=== PATIENT | male | born 1995 | race Caucasian/White ===

== ENCOUNTER 2017-09-10 14:02 | Inpatient (IN) | payer BC, OTHER ==
[~2017-09-10] VITALS: Ht 182.9 cm; Wt 75.5 kg
[2017-09-10] VITALS (8 sets, daily range): BP systolic 113–156; BP diastolic 58–82; PULSE 77–102; RESP 20–30; TEMP 98.3–98.7; O2SAT 98–100
[~2017-09-10 14:02] MED LIST: BACL10TA PO; DICL75 PO
[2017-09-10] MEDS ORDERED: IOHEXOL 350 MG/ML 10 ML VIAL (for RAD DIAG) IVCONTRAST ONE (14:03)
[2017-09-10] MEDS ORDERED: SODIUM CHLOR 0.9% 1000 ML INJ 1,000 ML IV SCH ×2 (14:16→21:36)
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
[2017-09-10] MEDS ORDERED: ALPR.25 PO (14:27)
[2017-09-10] MEDS ORDERED: MORPHINE SULFATE 4 MG/ML INJ IV PUSH ONE ×3 (14:30→18:00)
[2017-09-10] MEDS ORDERED: SODIUM CHLORIDE 0.9% FLUSH 10 ML FLUSH IVF PRN (14:30)
[2017-09-10 14:45] LABS: AUTOMATED NEUTROPHIL # 8.1 TH/MM3 (1.8-7.7); BASOPHIL % 0.2 % (0.0-2.0); EOSINOPHIL % 0.3 % (0.0-4.0); HEMATOCRIT 43.6 % (39.0-51.0); HEMO FLAGS DIFF FINAL; LYMPH % 23.6 % (9.0-44.0); LYMPHOCYTE # 2.7 TH/MM3 (1.0-4.8); MEAN CELL VOLUME 89.1 FL (80.0-100.0); MEAN CORPUSCULAR HEMOGLOBIN 30.6 PG (27.0-34.0); MEAN CORPUSCULAR HGB CONC 34.3 % (32.0-36.0); MONO % 5.1 % (0.0-8.0); NEUT % 70.8 % (16.0-70.0); PLATELET COUNT 211 TH/MM3 (150-450); RED CELL DISTRIBUTION WIDTH 12.9 % (11.6-17.2); WHITE BLOOD COUNT 11.4 TH/MM3 (4.0-11.0)
[2017-09-10 15:05] LABS: POTASSIUM 3.8 MEQ/L (3.5-5.1)
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
[2017-09-10] MEDS ORDERED: SODIUM CHLOR 0.9% 250 ML INJ 250 ML IV ONE (18:30)
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
[2017-09-10] MEDS ORDERED: SODIUM CHLOR 0.9% 1000 ML INJ 1,000 ML IV ONE (19:15)
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
[2017-09-10] MEDS ORDERED: LACTATED RINGER'S 1000 ML INJ 1,000 ML IV SCH (19:52)
[2017-09-10] MEDS ORDERED: CHLORHEXIDINE GLUCONATE 2 % 1 PACK (2 CLOTHS) TOP PRN (20:00)
[2017-09-10] MEDS ORDERED: MAGNESIUM HYDROXIDE SUSP 30 ML CUP PO PRN (20:00)
[2017-09-10] MEDS ORDERED: SODIUM CHLORIDE 0.9% FLUSH 10 ML FLUSH IV FLUSH PRN (20:00)
[2017-09-10] MEDS ORDERED: MISCELLANEOUS NURSING INFORMATION XX SCH (20:00)
[2017-09-10] MEDS ORDERED: MIDAZOLAM HCL 2 MG/2 ML VIAL ONE ×2 (20:44→21:23)
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
[2017-09-10] MEDS ORDERED: DOCUSATE SODIUM 100 MG CAP PO SCH (21:00)
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
[2017-09-10] MEDS ORDERED: IODIXANOL 320 MG/ML 50 ML VIAL (for RAD SPEC) I-ARTERIAL ONE (21:38)
--- NOTE | 2017-09-10 21:38 | PD.RAD ---
Post Procedure Progress Note Pre Procedure Diagnosis: (1) Splenic rupture Post Procedure Diagnosis: (1) Splenic rupture Procedure Date: Sep 10, 2017 Supervising Radiologist: Jay Jay Baptiste Proceduralist/Assist: Cristina Lopez, RT(R)(CV), Aaron Carpio RT(R) Anesthesia: Conscious Sedation Plan of Activity Patient to Unit: Nursing Unit Patient Condition: Good See PACS Report for procedural detail/treatment Vascular-Arterial Procedure Procedure 1 Procedure Site: Abdominal Procedure(s): Embolization (with gelfoam to stasis) Access Access Site(s): Right Femoral Artery Closure Site(s): Right manual pressure Jay Jay Baptiste MD Sep 10, 2017 21:37
[2017-09-10] MEDS ORDERED: ACETAMINOPHEN 325 MG TAB PO PRN (21:45)
[2017-09-10] MEDS ORDERED: GELATIN 12 MM/7 MM FOAM I-ARTERIAL ONE (22:01)
[2017-09-10] MEDS: CHLORHEXIDINE GLUCONATE 2 % 1 PACK (2 CLOTHS) TOP SCH (22:49)
[2017-09-11] VITALS (12 sets, daily range): BP systolic 126–137; BP diastolic 62–81; PULSE 62–76; RESP 11–24; TEMP 98–98.7; O2SAT 94–100
[2017-09-11] MEDS: ONDANSETRON HCL 4 MG/2 ML VIAL IV PUSH PRN ×3 (01:30→16:06)
[2017-09-11] MEDS: HYDROmorphone HCL PF 1 MG/ML VIAL IVP PRN ×6 (03:05→23:47)
[2017-09-11 03:40] LABS: REVIEW FLAG FINAL
--- NOTE | 2017-09-11 05:50 | RADRPT ---
EXAM DATE/TIME: 09/11/2017 05:12 [facility] COMPARISON: CHEST SINGLE AP, September 10, 2017, 15:22. INDICATIONS : Shortness of breath. MEDICAL HISTORY : None. SURGICAL HISTORY : None. ENCOUNTER: Subsequent ACUITY: 2 days PAIN SCORE: 8/10 LOCATION: Bilateral chest FINDINGS: A single view of the chest demonstrates the lungs to be symmetrically aerated without evidence of mas s, infiltrate or effusion. The cardiomediastinal contours are unremarkable. Osseous structures are intact. There are multiple overlying electrocardiogram leads. CONCLUSION: No acute disease. Oswaldo Dang MD on September 11, 2017 at 5:48 Board Certified Radiologist. This report was verified electronically.
[2017-09-11] MEDS ORDERED: LACTULOSE SYRUP 20 GM/30 ML CUP PO PRN (07:30)
[2017-09-11] MEDS: POLYETHYLENE GLYCOL 17 GM PKG PO SCH (08:07)
[2017-09-11] MEDS: FAMOTIDINE 20 MG TAB PO SCH ×2 (08:07→19:53)
[2017-09-11] MEDS: DOCUSATE SODIUM 50 MG/SENNA 8.6 MG TAB PO SCH ×2 (08:07→19:53)
[2017-09-11 08:14] LABS: AUTOMATED NEUTROPHIL # 15.9 TH/MM3 (1.8-7.7); HEMO FLAGS DIFF FINAL; LYMPH % 4.5 % (9.0-44.0); LYMPHOCYTE # 0.8 TH/MM3 (1.0-4.8); MEAN CELL VOLUME 89.8 FL (80.0-100.0); MEAN CORPUSCULAR HEMOGLOBIN 30.5 PG (27.0-34.0); MONO % 6.2 % (0.0-8.0); NEUT % 89.3 % (16.0-70.0); PLATELET COUNT 175 TH/MM3 (150-450); RED BLOOD COUNT 4.35 MIL/MM3 (4.50-5.90); RED CELL DISTRIBUTION WIDTH 12.9 % (11.6-17.2); WHITE BLOOD COUNT 17.8 TH/MM3 (4.0-11.0)
[2017-09-11 08:37] LABS: BICARBONATE 29.4 MEQ/L (21.0-32.0)
[2017-09-11] MEDS ORDERED: PROMETHAZINE INJ 25 MG/ML VIAL IM PRN (09:00)
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
[2017-09-11] MEDS: ALPRAZolam 0.25 MG TAB PO PRN ×2 (12:52→23:43)
[2017-09-11 19:32] LABS: HEMATOCRIT 39.4 % (39.0-51.0); REVIEW FLAG FINAL
[2017-09-11] MEDS: CHLORHEXIDINE GLUCONATE 2 % 1 PACK (2 CLOTHS) TOP SCH (19:39)
[2017-09-11] MEDS: LACTULOSE SYRUP 20 GM/30 ML CUP PO SCH (21:00)
[2017-09-11] MEDS: MAGNESIUM HYDROXIDE SUSP 30 ML CUP PO SCH (22:08)
[2017-09-12] VITALS (12 sets, daily range): BP systolic 132–143; BP diastolic 62–80; PULSE 69–96; RESP 17–22; TEMP 98–99.2; O2SAT 96–99
[2017-09-12 00:37] LABS: HEMATOCRIT 38.9 % (39.0-51.0); REVIEW FLAG FINAL
[2017-09-12] MEDS: HYDROmorphone HCL PF 1 MG/ML VIAL IVP PRN ×2 (04:49→08:38)
[2017-09-12 05:51] LABS: AUTOMATED NEUTROPHIL # 13.6 TH/MM3 (1.8-7.7); BASOPHIL % 0.1 % (0.0-2.0); EOSINOPHIL % 0.2 % (0.0-4.0); HEMATOCRIT 39.4 % (39.0-51.0); HEMO FLAGS DIFF FINAL; LYMPH % 6.4 % (9.0-44.0); LYMPHOCYTE # 1.1 TH/MM3 (1.0-4.8); MEAN CELL VOLUME 89.4 FL (80.0-100.0); MEAN CORPUSCULAR HEMOGLOBIN 31.3 PG (27.0-34.0); MONO % 12.3 % (0.0-8.0); PLATELET COUNT 152 TH/MM3 (150-450); RED BLOOD COUNT 4.41 MIL/MM3 (4.50-5.90); RED CELL DISTRIBUTION WIDTH 12.8 % (11.6-17.2); REVIEW FLAG FINAL; WHITE BLOOD COUNT 16.9 TH/MM3 (4.0-11.0)
[2017-09-12 06:06] LABS: ALT (GPT) 27 U/L (12-78); ANION GAP 5 MEQ/L (5-15); AST (GOT) 40 U/L (15-37); BLOOD UREA NITROGEN 8 MG/DL (7-18); CHLORIDE 100 MEQ/L (98-107); GLOMERULAR FILTRATION RATE 120 ML/MIN (>89); POTASSIUM 3.4 MEQ/L (3.5-5.1); SODIUM (NA) 138 MEQ/L (136-145)
[2017-09-12 06:08] LABS: ALKALINE PHOSPHATASE 63 U/L (45-117); TOTAL BILIRUBIN ADULT 1.5 MG/DL (0.2-1.0)
[2017-09-12] MEDS: LACTULOSE SYRUP 20 GM/30 ML CUP PO SCH (08:37)
[2017-09-12] MEDS: POLYETHYLENE GLYCOL 17 GM PKG PO SCH (08:37)
[2017-09-12] MEDS: FAMOTIDINE 20 MG TAB PO SCH ×2 (08:37→21:00)
[2017-09-12] MEDS: MAGNESIUM HYDROXIDE SUSP 30 ML CUP PO SCH ×2 (08:37→21:00)
[2017-09-12] MEDS: DOCUSATE SODIUM 50 MG/SENNA 8.6 MG TAB PO SCH ×2 (08:37→21:00)
[2017-09-12] MEDS ORDERED: POTASSIUM CHLORIDE 20 MEQ CONTROLLED RELEASE TAB PO ONE (09:15)
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
[2017-09-12] MEDS: ALPRAZolam 0.25 MG TAB PO PRN (13:31)
[2017-09-12 14:45] LABS: HEMATOCRIT 40.1 % (39.0-51.0)
[2017-09-12 15:06] LABS: REVIEW FLAG FINAL
[2017-09-12] MEDS ORDERED: PERI PO (16:05)
[2017-09-12] MEDS ORDERED: MAGN30S PO (16:05)
[2017-09-12] MEDS ORDERED: WALKER WHEELS/F1 MIS (16:06)
--- NOTE | 2017-09-12 16:07 | HHI.FF ---
Face to Face Verification Diagnosis: (1) Splenic rupture (2) Acetabular fracture Physical Therapy Order: Evaluate and Treat, Improve ambulation, Strength and gait training Home Health Nursing Order: Medical education Signs/symptoms of disease process Medication education-adverse effect Nursing assessment with vital signs I have seen patient Jay Jay Yee on 09/12/17. My clinical findings support the need for the requested home health care services because: Ltd mobility - disease progression Deconditioned w/ increased weakness Limited ability to care for self High risk of falls I certify that my clinical findings support that this patient is homebound because: Post-op weakness Unsteady gait/balance [id number] bed/chair Unable to use public transportation The exam, history, and the medical decision-making described in the above note were completed with the assistance of the mid-level provider. I reviewed and agree with the findings presented. I attest that I had a [id number] encounter with the patient on the same day, and personally performed and documented my assessment and findings in the medical record. Anjana Elizabeth Sep 12, 2017 16:07 Manuel Nye MD Sep 13, 2017 12:52
[2017-09-12 19:10] LABS: HEMATOCRIT 38.1 % (39.0-51.0); REVIEW FLAG FINAL
[2017-09-12] MEDS: ONDANSETRON HCL 4 MG/2 ML VIAL IV PUSH PRN (21:00)
[2017-09-12] MEDS: KETOROLAC TROMETHAMINE 30 MG/ML (IVP) VIAL IV PUSH PRN (21:00)
[2017-09-13] VITALS (8 sets, daily range): BP systolic 124–132; BP diastolic 64–70; PULSE 63–87; RESP 14–22; TEMP 97.4–98.5; O2SAT 97–98
[2017-09-13] MEDS: ONDANSETRON HCL 4 MG/2 ML VIAL IV PUSH PRN (06:10)
[2017-09-13] MEDS: KETOROLAC TROMETHAMINE 30 MG/ML (IVP) VIAL IV PUSH PRN (06:10)
[2017-09-13 06:22] LABS: BASOPHIL % 0.2 % (0.0-2.0); EOSINOPHIL # 0.1 TH/MM3 (0-0.4); EOSINOPHIL % 0.6 % (0.0-4.0); HEMATOCRIT 40.4 % (39.0-51.0); HEMO FLAGS DIFF FINAL; LYMPH % 13.8 % (9.0-44.0); LYMPHOCYTE # 2.3 TH/MM3 (1.0-4.8); MEAN CELL VOLUME 88.9 FL (80.0-100.0); MEAN CORPUSCULAR HEMOGLOBIN 31.4 PG (27.0-34.0); MEAN CORPUSCULAR HGB CONC 35.3 % (32.0-36.0); MONO % 12.3 % (0.0-8.0); NEUT % 73.1 % (16.0-70.0); PLATELET COUNT 139 TH/MM3 (150-450); RED BLOOD COUNT 4.55 MIL/MM3 (4.50-5.90); WHITE BLOOD COUNT 16.5 TH/MM3 (4.0-11.0)
[2017-09-13 06:52] LABS: ANION GAP 5 MEQ/L (5-15); BICARBONATE 30.9 MEQ/L (21.0-32.0); BLOOD UREA NITROGEN 13 MG/DL (7-18); CHLORIDE 98 MEQ/L (98-107); GLOMERULAR FILTRATION RATE 123 ML/MIN (>89); POTASSIUM 3.4 MEQ/L (3.5-5.1); SODIUM (NA) 134 MEQ/L (136-145)
[2017-09-13 06:53] LABS: AST (GOT) 27 U/L (15-37)
[2017-09-13 06:56] LABS: ALKALINE PHOSPHATASE 62 U/L (45-117); ALT (GPT) 18 U/L (12-78); TOTAL BILIRUBIN ADULT 1.3 MG/DL (0.2-1.0)
[2017-09-13] MEDS ORDERED: POTASSIUM CHLORIDE 20 MEQ CONTROLLED RELEASE TAB PO ONE (08:30)
[2017-09-13] MEDS: FAMOTIDINE 20 MG TAB PO SCH (08:47)
[2017-09-13] MEDS: ALPRAZolam 0.25 MG TAB PO PRN (08:55)
[2017-09-13] MEDS: LACTULOSE SYRUP 20 GM/30 ML CUP PO SCH (09:00)
[2017-09-13] MEDS: DOCUSATE SODIUM 50 MG/SENNA 8.6 MG TAB PO SCH (09:00)
[2017-09-13] MEDS: POLYETHYLENE GLYCOL 17 GM PKG PO SCH (09:00)
[2017-09-13] MEDS: MAGNESIUM HYDROXIDE SUSP 30 ML CUP PO SCH (09:00)
[2017-09-13] MEDS ORDERED: NORC5TAB PO (10:20)
[2017-09-13] MEDS ORDERED: REGL5TAB PO (10:20)
[2017-09-13] MEDS ORDERED: ACETAMINOPHEN/HYDROcodone 325 MG/5 MG TAB PO PRN (10:30)
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
[2017-09-13] MEDS ORDERED: METOCLOPRAMIDE HCL 10 MG TAB PO SCH (14:00)
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
== END 2017-09-13 15:50 | disposition home health service (06) | DRG 957 ==
LOC: NEPC 14:02 → NEDA 19:26 → N03A 22:01
PROVIDERS: ADMIT Surgery; ATTEND Surgery
PROC: 04V43DZ Restriction of Splenic Artery with Intraluminal Device, Percutaneous Approach (ICD-10-PCS; principal; 2017-09-10)
PROC: B41BYZZ Fluoroscopy of Other Intra-Abdominal Arteries using Other Contrast (ICD-10-PCS; 2017-09-10)
PROC: B413YZZ Fluoroscopy of Splenic Arteries using Other Contrast (ICD-10-PCS; 2017-09-10)
DX: S36.032A Major laceration of spleen, initial encounter (principal); S32.445A Nondisplaced fracture of posterior column [ilioischial] of left acetabulum, initial encounter for closed fracture; K66.1 Hemoperitoneum; F43.10 Post-traumatic stress disorder, unspecified; R11.2 Nausea with vomiting, unspecified; R00.0 Tachycardia, unspecified; R07.9 Chest pain, unspecified; F19.10 Other psychoactive substance abuse, uncomplicated; Y92.410 Unspecified street and highway as the place of occurrence of the external cause; V49.9XXA Car occupant (driver) (passenger) injured in unspecified traffic accident, initial encounter
CPT/HCPCS: 36246; 37244; 70450; 71010; 71260; 72125; 72170; 73564; 74177; 75726; 75774; 76937; 80048; 80053; 85014; 85018; 85025; 86850; 86900; 86901; 86920; 87641; 94150; 96361; 96374; 96376; 99152; 99153; J1170; J1885; J2250; J2270; J2405; J2550; J3010; J7030; J7120; Q9967

== ENCOUNTER 2017-10-09 19:40 | Observation (INO) | payer BC, OTHER ==
[~2017-10-09] VITALS: Ht 182.9 cm; Wt 90.9 kg
[~2017-10-09 19:40] MED LIST changes: +ALPR.25 PO; -BACL10TA PO; -DICL75 PO; +MAGN30S PO; +NORC5TAB PO; +PERI PO; +REGL5TAB PO; +WALKER WHEELS/F1 MIS
[2017-10-09 19:43] VITALS: BP 136/91; PULSE 88; RESP 18; TEMP 97.8; O2SAT 98
[2017-10-09 20:43] VITALS: BP 136/81; PULSE 93; RESP 16; O2SAT 100
[2017-10-09] MEDS ORDERED: METH500T3 PO (20:51)
[2017-10-09] MEDS ORDERED: ONDANSETRON HCL 4 MG/2 ML VIAL IV PUSH ONE (21:00)
[2017-10-09] MEDS ORDERED: MORPHINE SULFATE 4 MG/ML INJ IV PUSH ONE (21:00)
[2017-10-09] MEDS ORDERED: DIATRIZOATE MEGLUM/DIATRIZOATE SOD 9 ML CUP ONE (21:02)
[2017-10-09 21:03] LABS: AUTOMATED NEUTROPHIL # 17.6 TH/MM3 (1.8-7.7); BASOPHIL % 0.1 % (0.0-2.0); HEMATOCRIT 49.8 % (39.0-51.0); HEMOGLOBIN 17.1 GM/DL (13.0-17.0); LYMPHOCYTE # 1.4 TH/MM3 (1.0-4.8); MEAN CELL VOLUME 88.4 FL (80.0-100.0); MEAN CORPUSCULAR HEMOGLOBIN 30.3 PG (27.0-34.0); MEAN CORPUSCULAR HGB CONC 34.2 % (32.0-36.0); MEAN PLATELET VOLUME 7.6 FL (7.0-11.0); MONO % 2.5 % (0.0-8.0); MONOCYTE # 0.5 TH/MM3 (0-0.9); NEUT % 90.4 % (16.0-70.0); PLATELET COUNT 239 TH/MM3 (150-450); RED BLOOD COUNT 5.63 MIL/MM3 (4.50-5.90); RED CELL DISTRIBUTION WIDTH 13.4 % (11.6-17.2); WHITE BLOOD COUNT 19.5 TH/MM3 (4.0-11.0)
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
[2017-10-09 21:14] LABS: INTERNATIONAL NORMALIZED RATIO 1.1 RATIO; PROTHROMBIN TIME - PATIENT 10.8 SEC (9.8-11.6)
[2017-10-09] MEDS ORDERED: HYDROmorphone HCL PF 2 MG/ML VIAL IVS ONE (21:15)
[2017-10-09 21:37] LABS: ALBUMIN 4.9 GM/DL (3.4-5.0); AST (GOT) 16 U/L (15-37); BICARBONATE 31.1 MEQ/L (21.0-32.0); BLOOD UREA NITROGEN 22 MG/DL (7-18); CALCIUM 9.7 MG/DL (8.5-10.1); CHLORIDE 102 MEQ/L (98-107); CREATININE 0.89 MG/DL (0.60-1.30); GLOMERULAR FILTRATION RATE 106 ML/MIN (>89); SODIUM (NA) 141 MEQ/L (136-145)
[2017-10-09 21:44] LABS: ALKALINE PHOSPHATASE 100 U/L (45-117); ALT (GPT) 25 U/L (12-78); GLUCOSE,RANDOM 112 MG/DL (74-106); LIPASE 106 U/L (73-393); TOTAL BILIRUBIN ADULT 1.4 MG/DL (0.2-1.0); TOTAL PROTEIN 9.1 GM/DL (6.4-8.2)
[2017-10-09 22:00] VITALS: BP 140/80; PULSE 88; RESP 16; O2SAT 97
[2017-10-09] MEDS ORDERED: SODIUM CHLOR 0.9% 1000 ML INJ 1,000 ML IV ONE (22:30)
[2017-10-09] MEDS ORDERED: IOHEXOL 350 MG/ML 10 ML VIAL (for RAD DIAG) IVCONTRAST ONE (22:31)
--- NOTE | 2017-10-09 22:52 | RADRPT ---
EXAM DATE/TIME: 10/09/2017 22:24 [facility] COMPARISON: CT ABDOMEN & PELVIS W CONTRAST, September 10, 2017, 18:10. INDICATIONS : Rectal bleeding and left side abdominal pain. IV CONTRAST: 75 cc Omnipaque 350 (iohexol) IV ORAL CONTRAST: Prescribed oral contrast ingested. RADIATION DOSE: 6.64 CTDIvol (mGy) MEDICAL HISTORY : spleen laceration SURGICAL HISTORY : None. ENCOUNTER: Initial ACUITY: 1 day PAIN SCALE: 5/10 LOCATION: Left abdomen TECHNIQUE: Volumetric scanning of the abdomen and pelvis was performed. Using automated exposure control and ad justment of the mA and/or kV according to patient size, radiation dose was kept as low as reasonably achievable to obtain optimal diagnostic quality images. DICOM format image data is available electro nically for review and comparison. FINDINGS: CT Abdomen: The liver, pancreas, kidneys, adrenals are unremarkable. The previously seen intraperiton eal hemorrhage has resolved. The spleen demonstrates inhomogeneous enhancement related to prior areas of laceration and there is one area that demonstrates diminished enhancement in the superior anterio r portion of the spleen not present previously may be an area of infarction. There is no evidence for any appreciable pathological adenopathy, free fluid, or bowel obstruction. CT pelvis: There is no evidence for mass, abscess formation, or any significant adenopathy within the pelvis. Previously seen fracture involving the left acetabulum is again identified. CONCLUSION: Resolution of previously seen intraperitoneal hemorrhage with new area of diminished enhancement in the anterior superior portion of the spleen may be an area of splenic infarction or po ssibly evolution of previously seen areas of lacerations. Stephanie Braxton MD on October 09, 2017 at 22:46 Board Certified Radiologist. This report was verified electronically.
[2017-10-09] MEDS ORDERED: ACETAMINOPHEN/HYDROcodone 325 MG/5 MG TAB PO ONE (23:30)
[2017-10-09 23:42] LABS: BILIRUBIN, URINE NEG (NEG); BLOOD, URINE NEG (NEG); GLUCOSE,URINE NEG (NEG); KETONE, URINE NEG (NEG); MUCUS URINE FEW /lpf (OCC); NITRITE,URINE NEG (NEG); URINE COLOR YELLOW (YELLW/STRAW); URINE LEUKOCYTE ESTERASE NEG (NEG)
[2017-10-10] MEDS ORDERED: SENNOSIDES 8.6 MG TAB PO PRN (00:30)
[2017-10-10] MEDS ORDERED: ACETAMINOPHEN 325 MG TAB PO PRN (00:30)
[2017-10-10] MEDS ORDERED: BISACODYL 10 MG SUPP RECTAL PRN (00:30)
[2017-10-10] MEDS ORDERED: LACTULOSE SYRUP 20 GM/30 ML CUP PO PRN (00:30)
[2017-10-10] MEDS ORDERED: SODIUM CHLORIDE 0.9% FLUSH 10 ML FLUSH IV FLUSH PRN (00:30)
[2017-10-10] MEDS ORDERED: ONDANSETRON HCL 4 MG/2 ML VIAL IVP PRN (00:30)
[2017-10-10] MEDS ORDERED: MAGNESIUM HYDROXIDE SUSP 30 ML CUP PO PRN (00:30)
[2017-10-10] MEDS ORDERED: NALOXONE HCL 0.4 MG/ML AMP IV PUSH PRN (00:30)
[2017-10-10 00:59] VITALS: BP 120/67; PULSE 80; RESP 18; TEMP 97.9; O2SAT 98
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
[2017-10-10] MEDS: ACETAMINOPHEN/HYDROcodone 325 MG/5 MG TAB PO PRN ×3 (03:59→12:54)
[2017-10-10 04:04] VITALS: BP 122/61; PULSE 79; RESP 18; TEMP 97.5; O2SAT 98
[2017-10-10 08:32] LABS: AUTOMATED NEUTROPHIL # 6.1 TH/MM3 (1.8-7.7); BASOPHIL % 0.4 % (0.0-2.0); EOSINOPHIL # 0.1 TH/MM3 (0-0.4); EOSINOPHIL % 0.9 % (0.0-4.0); HEMATOCRIT 40.7 % (39.0-51.0); HEMOGLOBIN 14.1 GM/DL (13.0-17.0); LYMPHOCYTE # 2.4 TH/MM3 (1.0-4.8); MEAN CELL VOLUME 88.8 FL (80.0-100.0); MEAN CORPUSCULAR HEMOGLOBIN 30.8 PG (27.0-34.0); MEAN CORPUSCULAR HGB CONC 34.7 % (32.0-36.0); MEAN PLATELET VOLUME 7.8 FL (7.0-11.0); MONO % 9.2 % (0.0-8.0); MONOCYTE # 0.9 TH/MM3 (0-0.9); NEUT % 64.5 % (16.0-70.0); PLATELET COUNT 186 TH/MM3 (150-450); RED BLOOD COUNT 4.59 MIL/MM3 (4.50-5.90); RED CELL DISTRIBUTION WIDTH 13.2 % (11.6-17.2); WHITE BLOOD COUNT 9.4 TH/MM3 (4.0-11.0)
[2017-10-10 08:57] LABS: BICARBONATE 27.6 MEQ/L (21.0-32.0); CALCIUM 8.5 MG/DL (8.5-10.1); CREATININE 0.79 MG/DL (0.60-1.30)
[2017-10-10] MEDS ORDERED: DOCUSATE SODIUM 50 MG/SENNA 8.6 MG TAB PO SCH (09:00)
[2017-10-10] MEDS ORDERED: SODIUM CHLORIDE 0.9% FLUSH 10 ML FLUSH IV FLUSH SCH (09:00)
[2017-10-10 10:05] VITALS: BP 135/67; PULSE 75; RESP 20; TEMP 96.1; O2SAT 99
[2017-10-10 12:50] VITALS: BP 123/71; PULSE 79; RESP 20; TEMP 96.1; O2SAT 99
[2017-10-10 14:19] LABS: HEMATOCRIT 43.4 % (39.0-51.0); HEMOGLOBIN 15.2 GM/DL (13.0-17.0)
[2017-10-10] MEDS ORDERED: NORC5TAB PO (14:22)
[2017-10-10] MEDS ORDERED: PERI PO (14:22)
[2017-10-10] MEDS ORDERED: REGL5TAB PO (14:22)
[2017-10-10 14:23] VITALS: RESP 18
== END 2017-10-10 16:01 | disposition home or self-care (01) ==
LOC: NEPE 19:40 → NEDA 10-10 00:14 → NEPGCP 10-10 00:52
PROVIDERS: ADMIT Internal Medicine; ATTEND Internal Medicine
DX: R10.9 Unspecified abdominal pain (principal); R53.1 Weakness; R42 Dizziness and giddiness; K92.1 Melena; V89.2XXD Person injured in unspecified motor-vehicle accident, traffic, subsequent encounter; D72.829 Elevated white blood cell count, unspecified; S36.032D Major laceration of spleen, subsequent encounter
CPT/HCPCS: 74177; 80048; 80053; 81001; 83690; 85014; 85018; 85025; 85610; 85730; 86850; 86900; 86901; 96361; 96374; 96375; 99285; G0378; J1170; J2405; J7030; Q9963; Q9967

== ENCOUNTER 2017-10-21 00:47 | Emergency (ER) | payer OTHER ==
[~2017-10-21] VITALS: Ht 182.9 cm; Wt 75.0 kg
[~2017-10-21 00:47] MED LIST changes: -MAGN30S PO; +METH500T3 PO
[2017-10-21 00:48] VITALS: BP 138/70; PULSE 76; RESP 16; TEMP 97.9; O2SAT 98
[2017-10-21 02:21] VITALS: BP 123/71; PULSE 88; RESP 18; O2SAT 98
[2017-10-21] MEDS ORDERED: SODIUM CHLORIDE 0.9% FLUSH 10 ML FLUSH IV FLUSH PRN (02:45)
[2017-10-21 02:59] LABS: AUTOMATED NEUTROPHIL # 8.1 TH/MM3 (1.8-7.7); BASOPHIL % 0.2 % (0.0-2.0); EOSINOPHIL # 0.1 TH/MM3 (0-0.4); EOSINOPHIL % 0.9 % (0.0-4.0); HEMATOCRIT 42.1 % (39.0-51.0); HEMOGLOBIN 14.8 GM/DL (13.0-17.0); LYMPH % 17.8 % (9.0-44.0); MEAN CELL VOLUME 88.7 FL (80.0-100.0); MEAN CORPUSCULAR HEMOGLOBIN 31.3 PG (27.0-34.0); MEAN CORPUSCULAR HGB CONC 35.3 % (32.0-36.0); MEAN PLATELET VOLUME 7.6 FL (7.0-11.0); MONO % 8.1 % (0.0-8.0); MONOCYTE # 0.9 TH/MM3 (0-0.9); PLATELET COUNT 219 TH/MM3 (150-450); RED BLOOD COUNT 4.74 MIL/MM3 (4.50-5.90); RED CELL DISTRIBUTION WIDTH 13.6 % (11.6-17.2); WHITE BLOOD COUNT 11.1 TH/MM3 (4.0-11.0)
[2017-10-21 03:14] LABS: ALBUMIN 4.2 GM/DL (3.4-5.0); ALT (GPT) 56 U/L (12-78); AST (GOT) 32 U/L (15-37); BICARBONATE 31.3 MEQ/L (21.0-32.0); BLOOD UREA NITROGEN 13 MG/DL (7-18); CALCIUM 9.3 MG/DL (8.5-10.1); CHLORIDE 104 MEQ/L (98-107); CREATININE 0.78 MG/DL (0.60-1.30); GLOMERULAR FILTRATION RATE 123 ML/MIN (>89); GLUCOSE,RANDOM 112 MG/DL (74-106); LIPASE 89 U/L (73-393); SODIUM (NA) 141 MEQ/L (136-145)
[2017-10-21 03:17] LABS: ALKALINE PHOSPHATASE 87 U/L (45-117); TOTAL BILIRUBIN ADULT 1.5 MG/DL (0.2-1.0); TOTAL PROTEIN 7.8 GM/DL (6.4-8.2)
[2017-10-21] MEDS ORDERED: IOHEXOL 350 MG/ML 10 ML VIAL (for RAD DIAG) IVCONTRAST ONE (04:18)
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
== END 2017-10-21 05:35 | disposition home or self-care (01) ==
LOC: NEPC 00:47
DX: R10.13 Epigastric pain (principal); G89.29 Other chronic pain; F41.9 Anxiety disorder, unspecified
CPT/HCPCS: 74177; 80053; 83605; 83690; 85025; 99285; Q9967

== ENCOUNTER 2017-10-23 16:21 | Emergency (ER) | payer OTHER ==
[~2017-10-23] VITALS: Ht 182.9 cm; Wt 72.7 kg
[2017-10-23 16:24] VITALS: BP 154/97; PULSE 87; RESP 16; TEMP 98.4; O2SAT 98
[2017-10-23 17:33] LABS: BILIRUBIN, URINE NEG (NEG); BLOOD, URINE NEG (NEG); GLUCOSE,URINE NEG (NEG); KETONE, URINE NEG (NEG); NITRITE,URINE NEG (NEG); PH, URINE 5.5 (5.0-8.5); SQUAMOUS EPITHELIAL CELL URINE <1 /hpf (0-5); URINE COLOR YELLOW (YELLW/STRAW); URINE LEUKOCYTE ESTERASE NEG (NEG)
[2017-10-23] MEDS ORDERED: HYDR-3583 PO (18:51)
[2017-10-23] MEDS ORDERED: OMEP20TA93 PO (18:51)
[2017-10-23 18:53] LABS: ALBUMIN 4.2 GM/DL (3.4-5.0); AST (GOT) 19 U/L (15-37); BICARBONATE 30.9 MEQ/L (21.0-32.0); BLOOD UREA NITROGEN 17 MG/DL (7-18); CALCIUM 8.7 MG/DL (8.5-10.1); CHLORIDE 101 MEQ/L (98-107); GLOMERULAR FILTRATION RATE 93 ML/MIN (>89); GLUCOSE,RANDOM 76 MG/DL (74-106); LIPASE 90 U/L (73-393); SODIUM (NA) 137 MEQ/L (136-145)
[2017-10-23 18:57] LABS: ALKALINE PHOSPHATASE 84 U/L (45-117); ALT (GPT) 40 U/L (12-78); TOTAL BILIRUBIN ADULT 0.5 MG/DL (0.2-1.0); TOTAL PROTEIN 7.9 GM/DL (6.4-8.2)
[2017-10-23 19:03] LABS: AUTOMATED NEUTROPHIL # 6.1 TH/MM3 (1.8-7.7); BASOPHIL % 0.4 % (0.0-2.0); EOSINOPHIL # 0.2 TH/MM3 (0-0.4); EOSINOPHIL % 1.9 % (0.0-4.0); HEMATOCRIT 41.6 % (39.0-51.0); HEMOGLOBIN 14.2 GM/DL (13.0-17.0); LYMPH % 25.4 % (9.0-44.0); LYMPHOCYTE # 2.4 TH/MM3 (1.0-4.8); MEAN CELL VOLUME 89.2 FL (80.0-100.0); MEAN CORPUSCULAR HEMOGLOBIN 30.5 PG (27.0-34.0); MEAN CORPUSCULAR HGB CONC 34.1 % (32.0-36.0); MEAN PLATELET VOLUME 7.3 FL (7.0-11.0); MONO % 8.5 % (0.0-8.0); MONOCYTE # 0.8 TH/MM3 (0-0.9); NEUT % 63.8 % (16.0-70.0); PLATELET COUNT 272 TH/MM3 (150-450); RED BLOOD COUNT 4.67 MIL/MM3 (4.50-5.90); RED CELL DISTRIBUTION WIDTH 13.5 % (11.6-17.2); WHITE BLOOD COUNT 9.5 TH/MM3 (4.0-11.0)
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
[2017-10-23] MEDS ORDERED: ALPRAZolam 0.5 MG TAB PO ONE (19:30)
[2017-10-23] MEDS ORDERED: VIST50CA PO (19:52)
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
== END 2017-10-23 21:00 | disposition home or self-care (01) ==
LOC: NEPC 16:21
DX: F41.9 Anxiety disorder, unspecified (principal); R14.0 Abdominal distension (gaseous); F98.8 Other specified behavioral and emotional disorders with onset usually occurring in childhood and adolescence; Z79.899 Other long term (current) drug therapy
CPT/HCPCS: 74018; 80053; 81001; 83690; 85025; 99284

== ENCOUNTER 2017-12-14 18:10 | Emergency (ER) | payer OTHER ==
[~2017-12-14] VITALS: Ht 180.3 cm; Wt 80.0 kg
[~2017-12-14 18:10] MED LIST changes: -ALPR.25 PO; +HYDR-3583 PO; -NORC5TAB PO; +OMEP20TA93 PO; -PERI PO; +VIST50CA PO
[2017-12-14 18:47] VITALS: BP 131/85; PULSE 96; RESP 16; TEMP 97; O2SAT 98
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
== END 2017-12-15 06:29 | disposition home or self-care (01) ==
LOC: NEDAMB 18:10
DX: F10.129 Alcohol abuse with intoxication, unspecified (principal); F98.8 Other specified behavioral and emotional disorders with onset usually occurring in childhood and adolescence; F41.9 Anxiety disorder, unspecified; Z79.899 Other long term (current) drug therapy
CPT/HCPCS: 99283